=== PATIENT | female | born 1970 | race Caucasian/White ===

== ENCOUNTER 2019-12-30 11:08 | Emergency (ER) | payer BC ==
[~2019-12-30] VITALS: Ht 160 cm; Wt 96.8 kg
[2019-12-30] MEDS ORDERED: DIPH,PERTUSS(ACELL),TET VAC/PF 0.5 ML SYRINGE. VAX IM ONE (12:15)
[2019-12-30] MEDS ORDERED: RABIES VIRUS VACC PF 2.5 UNIT / 1 ML VIAL. VAX IM ONE (12:15)
--- NOTE | 2019-12-30 12:26 | RAD ---
TIBIA FIBULA LEFT History: Reason: dog bite / Spl. Instructions: / History: Technique: 2 views left tibia and fibula. Comparison: None. Findings: Normal alignment. No fracture. No radiopaque foreign bodies. Lower leg soft tissue injury medially. Impression: 1. No acute osseous abnormality. 2. Medial lower leg soft tissue injury. Electronically signed by: Dejan Adair DO (12/30/2019 12:23 PM) [facility]
[2019-12-30] MEDS ORDERED: RABIES IMMUNE GLOBULIN/PF 300 UNIT/ML 5ML VIAL. VAX IM ONE (12:30)
[2019-12-30] MEDS ORDERED: AMOX1TAB61 PO (12:39)
--- NOTE | 2019-12-30 12:41 | PHYS DOC ---
Past History Past Medical History: Anxiety Past Surgical History: Hysterectomy Alcohol Use: None General Adult EDM: Chief Complaint: ANIMAL BITE HPI: HPI: 49-year-old female past medical history of anxiety and bladder incontinence, presents the ED with complaints of animal bite to her left leg that occurred morning while patient was walking into a quick stop. 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 Concern for redness around bite mj. Review of Systems: Review of Systems: Constitutional: Denies fever or chills Eyes: Denies change in visual acuity HENT: Denies nasal congestion or sore throat Respiratory: Denies cough or shortness of breath Cardiovascular: Denies chest pain or edema GI: Denies abdominal pain, nausea, vomiting, or diarrhea : Denies dysuria, hematuria Musculoskeletal: Denies back pain or joint pain Integument: Denies rash Neurologic: Denies headache, focal weakness or sensory changes Endocrine: Denies polyuria or polydipsia Lymphatic: Denies swollen glands Psychiatric: Denies depression or anxiety Heart Score: Risk Factors: Risk Factors: DM, Current or recent (<one month) smoker, HTN, HLP, family history of CAD, obesity. Risk Scores: Score 0 - 3: 2.5% MACE over next 6 weeks - Discharge Home Score 4 - 6: 20.3% MACE over next 6 weeks - Admit for Clinical Observation Score 7 - 10: 72.7% MACE over next 6 weeks - Early Invasive Strategies Current Medications: Current Meds: Current Medications Medications (Trade) Dose Ordered Sig/Oneil Start Time Stop Time Status Last Admin Dose Admin Diphtheria/ Pertussis/Tetanus Vacc (ADACEL TDap SYRINGE) 0.5 ml ONCE ONCE 12/30/19 12:15 12/30/19 12:16 DC 12/30/19 12:30 0.5 ML Rabies Immune Globulin (HyperRAB 300 UNIT/ML VIAL) 6.45 ml ONCE ONCE 12/30/19 12:30 12/30/19 12:31 DC Rabies Vaccine Human Diploid Cell (Imovax Rabies 2.5 Unit / ml) 1 ml ONCE ONCE 12/30/19 12:15 12/30/19 12:16 DC Allergies: Allergies: Allergies Coded Allergies Type Severity Reaction Last Updated Verified Sulfa (Sulfonamide Antibiotics) Allergy Unknown 12/30/19 Yes ofloxacin Allergy Unknown 12/30/19 Yes Physical Exam: PE: Constitutional: Well developed, well nourished, no acute distress, non-toxic appearance. [] HENT: Normocephalic, atraumatic, Eyes: EOMI, conjunctiva normal, no discharge. [] Neck: Normal range of motion, supple, Cardiovascular:Heart rate regular rhythm, no murmur [] Lungs & Thorax: Bilateral breath sounds clear to auscultation [] Abdomen: Bowel sounds normal, soft, no tenderness, no masses, no pulsatile masses. [] Skin: Warm, dry, no erythema, 5x6 cm area of warm erythema with skin desquamati on, center are of skin that's sloughing off is black, no crepitus or fluctuance Back: No tenderness, no CVA tenderness. [] Extremities: No tenderness, no cyanosis, no clubbing, ROM intact, no edema. [] Neurologic: Alert and oriented X 3, normal motor function, normal sensory function, no focal deficits noted. [] Psychologic: Affect normal, judgement normal, mood normal. [] Current Patient Data: Vital Signs: Vital Signs Date Time Temp Pulse Resp B/P (MAP) Pulse Ox O2 Delivery O2 Flow Rate FiO2 12/30/19 11:08 84 16 145/79 (101) 98 Room Air EKG: EKG: [] Radiology/Procedures: Radiology/Procedures: []IMAGING REPORT Signed PATIENT: MITCHELL LOOUNT: [id number] : 1970 LOCATION: ER AGE: 49 SEX: F EXAM STATUS: REG ER ORD. PHYSICIAN: MORENITA AMRTÍNEZ DO REASON: dog bite PROCEDURE: TIBIA FIBULA LEFT TIBIA FIBULA LEFT History: Reason: dog bite / Spl. Instructions: / History: Technique: 2 views left tibia and fibula. Comparison: None. Findings: Normal alignment. No fracture. No radiopaque foreign bodies. Lower leg soft tissue injury medially. Impression: 1. No acute osseous abnormality. 2. Medial lower leg soft tissue injury. Electronically signed by: Dejan Adair DO (12/30/2019 12:23 PM) [facility] DICTATED AND SIGNED BY: DEJAN ADAIR DO DATE: 12/30/19 1223 CC: PCP,NO; MORENITA MARTÍNEZ DO ~ Course & Med Decision Making: Course & Med Decision Making Pertinent Labs and Imaging studies reviewed. (See chart for details) Concern for dog bite to left leg with cellulitis and some necrotic tissue over puncture aspect of bite. 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 Patient's tetanus was updated and patient was started on rabies prophylaxis. Will prescribe antibiotics to cover for cellulitis. Encouraged urgent outpatient follow-up with PMD - will need repeat wound checks and rabies vaccinations on day 3, 7, and day 14. Life-threatening processes were considered but are low suspicion at this time, given history and physical exam. Pt was educated on all prescription medications and adverse effects. All patient's questions were answered and pt was stable at time of discharge. Differential includes erythema multiforme, hirsch-rocío syndrome, toxic epidermal necrolysis, staphylococcal scalded skin syndrome, necrotizing fasciitis/myositis/cellulitis, purpura fulminans, heparin or warfarin induced skin necrosis, drug rash, disseminated intravascular coagulation, disseminated gonococcal disease, vasculitis, septicemia, petechial disorder or coagulopathy, I spoken with the patient and her caregivers. I explained the patient's condition, diagnoses and treatment plan based on the information available to me at this time. I have answered the patient and her caregiver's questions and addressed any concerns. The patient and her caregivers have a good understanding of patient's diagnosis, condition and treatment plan as can be expected at this point. Vital signs have been stable. Patient's condition is stable and appropriate for discharge from the emergency department. Patient will pursue further outpatient evaluation with primary care physician or other designated or consulting physician as outlined in the discharge instructions. The patient and/or caregivers are agreeable to this plan of care and follow-up instructions have been explained in detail. The patient and/or caregivers have received these instructions in written form and have expressed an understanding of the discharge instructions. The patient and/or caregivers are aware that any significant change of condition or worsening of symptoms should prompt immediate return to this or the closest emergency department or call to 911. Vishnu Disclaimer: Vishnu Disclaimer: This electronic medical record was generated, in whole or in part, using a voice recognition dictation system. Departure Departure: Impression: Primary Impression: Dog bite of left lower leg Additional Impressions: Need for tetanus, diphtheria, and acellular pertussis (Tdap) vaccine in patient of adolescent age or older Rabies, need for prophylactic vaccination against Cellulitis of leg Disposition: 01 HOME/RESIDENCE PRIOR TO ADM Condition: STABLE Referrals: PCP,NO (PCP) Patient Instructions: Animal Bite, Cellulitis, Rabies Immune Globulin, human RIG solution for injection, Rabies Vaccine suspension for injection Additional Instructions: Please return to the ed of you pcp on 01/01, 01/05 and 01/13 for repeat rabies vaccinations Scripts Amoxicillin/Potassium Clav (AUGMENTIN 875-125 TABLET) 1 Each Tablet 1 TAB PO BID for cellulitis for 10 Days, #20 TAB 0 Refills Prov: MROENITA MARTÍNEZ DO 12/30/19 Justification of Admission: Justification of Admission: Justification of Admission Dx: N/A MORENITA MARTÍNEZ DO Dec 30, 2019 12:40
[2019-12-30 12:50] VITALS: BP 133/68
== END 2019-12-30 13:10 | disposition home or self-care (01) ==
LOC: ER 11:08
DX: S81.852A Open bite, left lower leg, initial encounter (principal); Z23 Encounter for immunization; L03.116 Cellulitis of left lower limb; F41.9 Anxiety disorder, unspecified; Z88.2 Allergy status to sulfonamides; Z88.1 Allergy status to other antibiotic agents; W54.0XXA Bitten by dog, initial encounter; Y93.01 Activity, walking, marching and hiking; Y92.89 Other specified places as the place of occurrence of the external cause; Y99.8 Other external cause status
CPT/HCPCS: 73590; 87070; 87077; 90471; 90715; 96372; 99284-25

== ENCOUNTER 2020-03-24 07:58 | Emergency (ER) | payer BC ==
[~2020-03-24] VITALS: Ht 160 cm; Wt 96.8 kg
[2020-03-24 07:58] VITALS: BP 117/71
[~2020-03-24 07:58] MED LIST: AMOX1TAB61 PO
--- NOTE | 2020-03-24 08:17 | PHYS DOC ---
Past History Past Medical History: Anxiety Past Surgical History: Hysterectomy Alcohol Use: None Adult General Chief Complaint Chief Complaint: KNEE INJURY HPI HPI Patient is a 49-year-old female who presents for right knee pain. States she was ambulating and suffered a mechanical fall after tripping over her household item, she reports falling on her left knee and subsequently brace the rest of her body for fall and thinks she twisted her right knee when falling down onto a hardwood floor. Did not hit head, no loss of consciousness but admits ongoing right knee pain. Pain is deep, does not radiate, and improved with 800 mg ibuprofen consumption. She is ambulatory but admits antalgic gait. Denies any motor or sensory function changes, no other neurologic changes reported. Review of Systems Review of Systems Fourteen body systems of review of systems have been reviewed. See HPI for pertinent positives and negative responses, other delarosa all other systems are negative, non-pertinent or non-contributory Allergies Allergies Allergies Coded Allergies Type Severity Reaction Last Updated Verified Sulfa (Sulfonamide Antibiotics) Allergy Unknown 12/30/19 Yes ofloxacin Allergy Unknown 12/30/19 Yes Physical Exam Physical Exam Constitutional: Well developed, well nourished, no acute distress, non-toxic appearance. HENT: Normocephalic, atraumatic, bilateral external ears normal, oropharynx moist, no oral exudates, nose normal. Eyes: PERRLA, EOMI, conjunctiva normal, no discharge. Neck: Normal range of motion, no tenderness, supple, no stridor. Cardiovascular: Heart rate regular, sinus rhythm, no murmurs rubs or gallops Lungs & Thorax: Bilateral breath sounds clear to auscultation Abdomen: Bowel sounds normal, soft, no tenderness, no masses, no pulsatile masses. Nonsurgical abdomen, no peritoneal signs Skin: Warm, dry, no erythema, no rash. Back: No tenderness, no CVA tenderness. Extremities: No tenderness to medial and lateral joint spaces or fibular head, no cyanosis, no clubbing, ROM intact, no edema. Negative anterior and posterior Dani's tests, negative valgus and varus strain tests, negative Sabrina's test, negative patellar grind, no visual and/or palpable abnormalities noted, negative Luz Neurologic: Alert and oriented X 3, normal motor & sensory function of bilateral lower extremities, no focal deficits noted. Psychologic: Affect normal, judgement normal, mood normal. EKG EKG [] Radiology/Procedures Radiology/Procedures [] Heart Score Risk Factors: Risk Factors: DM, Current or recent (<one month) smoker, HTN, HLP, family history of CAD, obesity. Risk Scores: Risk Factors: DM, Current or recent (<one month) smoker, HTN, HLP, family history of CAD, obesity. Course & Med Decision Making Course & Med Decision Making ABCs unremarkable Patient ambulatory with antalgic gait. Discussed no concerning emergent and/or surgical findings based on comprehensive history and physical examination. I disclose there is a little indication for further ER work-up at this point given clinical picture I advised patient to continue supportive care practices with close PCP follow-up . I did disclose she might be a candidate for physical therapy in outpatient setting. Also disclosed this might be an acute presentation of more concerning pathology and so, close follow-up with outpatient primary care physician is advised with potential need for outpatient orthopedic and/or sports medicine referrals Strict return precautions were discussed with good understanding by patient, all questions and concerns addressed prior to ER departure in stable condition Dragon Disclaimer Dragon Disclaimer This electronic medical record was generated, in whole or in part, using a voice recognition dictation system. Departure Departure: Impression: Primary Impression: Right knee pain Disposition: 01 DC HOME SELF CARE/HOMELESS Condition: STABLE Referrals: PCP,UNKNOWN (PCP) Patient Instructions: Knee Pain, RICE - Routine Care for Injuries Additional Instructions: As instructed prior to ER departure, please call your primary care physician first thing after departure to schedule outpatient follow-up within 14 days after ER departure Please continue supportive care practices such as rice protocol and using Tylenol and/or NSAIDs for pain control. Please discuss potential need for outpatient physical therapy referral with your primary care physician on follow- up If any concerning signs or symptoms present prior to outpatient follow-up please do not hesitate to come back for repeat examination It was a pleasure to take care of you and I wish you a speedy recovery! CHE NOBLE DO Mar 24, 2020 08:17
== END 2020-03-24 08:20 | disposition home or self-care (01) ==
LOC: ER 07:58
DX: M25.561 Pain in right knee (principal); F41.9 Anxiety disorder, unspecified; Z90.710 Acquired absence of both cervix and uterus; Z88.1 Allergy status to other antibiotic agents; Z88.2 Allergy status to sulfonamides
CPT/HCPCS: 99282

== ENCOUNTER 2021-06-27 20:55 | Emergency (ER) | payer BC ==
[~2021-06-27] VITALS: Ht 160 cm; Wt 103.0 kg
[2021-06-27 21:03] VITALS: BP 132/92
--- NOTE | 2021-06-27 21:03 | PHYS DOC ---
Past History Past Medical History: Anxiety Past Surgical History: Hysterectomy Alcohol Use: None Adult General HPI HPI Patient is a 51-year-old female who presents with thumb laceration that happened at home just a few minutes ago when she was cutting ice cream cake. States he is up-to-date on tetanus. Denies any other injuries. Review of Systems Review of Systems Review of systems otherwise unremarkable except noted in HPI Allergies Allergies Allergies Coded Allergies Type Severity Reaction Last Updated Verified Sulfa (Sulfonamide Antibiotics) Allergy Unknown 03/24/20 Yes ofloxacin Allergy Unknown 03/24/20 Yes Physical Exam Physical Exam Constitutional: Well developed, well nourished, no acute distress, non-toxic appearance. [] Skin: Warm, dry, no erythema, no rash. [] Extremities: Neurovascular exam intact, 1 cm very superficial laceration across distal tip of left thumb right on the side of the nail. Bleeding controlled, no need for sutures or glue. Neurologic: Alert and oriented X 3, normal motor function, normal sensory function, no focal deficits noted. [] Psychologic: Affect normal, judgement normal, mood normal. [] EKG EKG [] Radiology/Procedures Radiology/Procedures [] Heart Score C/O Chest Pain: No Risk Factors: Risk Factors: DM, Current or recent (<one month) smoker, HTN, HLP, family history of CAD, obesity. Risk Scores: Risk Factors: DM, Current or recent (<one month) smoker, HTN, HLP, family history of CAD, obesity. Course & Med Decision Making Course & Med Decision Making Patient is a 51-year-old female presents with thumb laceration No need for suture repair. Wound cleaned, bandaged. Patient given wound care material for home. Given dose of antibiotics in the ED. Up-to-date on tetanus Gave wound management instructions. Advised to follow-up with primary care in 5 to 7 days for wound check. Gave return precautions to the ED. Patient grateful, verbalized understanding and agree with plan of discharge. Dragon Disclaimer Dragon Disclaimer This electronic medical record was generated, in whole or in part, using a voice recognition dictation system. Departure Departure: Impression: Primary Impression: Thumb laceration Disposition: HOME / SELF CARE / HOMELESS Condition: GOOD Referrals: PCP,UNKNOWN (PCP) GIBRAN SYLVESTER Patient Instructions: Fingertip Laceration, Wound Care, [id number] Additional Instructions: Thank you for coming into the emergency department tonight and allowing us to take care of you. Please read the attached information carefully to go over things we discussed. Please keep the area clean, dry and bandaged. You can change the bandage daily and clean with warm soap and water. You can use Tylenol, ibuprofen and ice as tolerated as long as you are not allergic. Please follow-up with your primary care physician in 5 to 7 days for a wound check. Please come back with new or concerning symptoms as discussed. ROBIN BRADEN MD Jun 27, 2021 21:03
[2021-06-27] MEDS ORDERED: CEPHALEXIN 250 MG CAPSULE PO ONE (21:15)
== END 2021-06-27 21:48 | disposition home or self-care (01) ==
LOC: ER 20:55
DX: S61.012A Laceration without foreign body of left thumb without damage to nail, initial encounter (principal); Z88.2 Allergy status to sulfonamides; Z88.1 Allergy status to other antibiotic agents; W26.8XXA Contact with other sharp object(s), not elsewhere classified, initial encounter; Y93.89 Activity, other specified; Y92.89 Other specified places as the place of occurrence of the external cause; Y99.8 Other external cause status
CPT/HCPCS: 99283